=== PATIENT | female | born 1980 | race Caucasian/White ===

== ENCOUNTER 2020-10-11 11:44 | Inpatient (IN) | payer OTHER ==
[2020-10-11 12:22] VITALS: BMI 20.3
[2020-10-11] MEDS ORDERED: Ondansetron PF 4 MG/2 ML Vial IVP PRN (13:10)
[2020-10-11] MEDS ORDERED: Morphine 4 MG/ML VIAL SLOW IVP SCH (13:15)
[2020-10-11] MEDS ORDERED: Ondansetron HCl/PF 6 MG in Sodium Chloride 0.9% 50 ML IVPB PRN (13:15)
[2020-10-11] MEDS ORDERED: Morphine 4 MG/ML VIAL SLOW IVP PRN (13:22)
[2020-10-11] MEDS ORDERED: Hydrocortisone Sod Succ/PF 250 mg/2 ml Vial SLOW IVP SCH (14:45)
[2020-10-11] MEDS ORDERED: Acetaminophen 325 MG TAB PO PRN (14:57)
[2020-10-11] MEDS ORDERED: tiZANidine HCl 4 MG TAB PO PRN (14:57)
[2020-10-11] MEDS: Dextrose 5 %-0.45 % NaCl 1,000 ML IV SCH ×2 (15:38→17:53)
[2020-10-11] MEDS ORDERED: Methylnaltrexone 12 MG/0.6 ML VIAL SC SCH (17:00)
[2020-10-11] MEDS: Prochlorperazine 10 MG/2 ML VIAL IVP PRN (17:27)
[2020-10-11] MEDS ORDERED: Morphine ER 15 MG TAB PO SCH (21:00)
[2020-10-11] MEDS ORDERED: Ivabradine 5 MG TAB PO SCH (21:00)
[2020-10-11] MEDS ORDERED: Tacrolimus 0.5 MG CAP PO SCH (21:00)
[2020-10-11] MEDS ORDERED: MYCOPHENOLATE 180 MG PO SCH (21:00)
[2020-10-11] MEDS ORDERED: HYDROmorphone 2 MG TAB PO SCH (21:00)
[2020-10-11 22:03] VITALS: BP 121/40; TEMP 96.1
[2020-10-12] MEDS ORDERED: Promethazine 25 MG TAB PO PRN (04:03)
[2020-10-12] MEDS ORDERED: Ondansetron ODT 4 MG TAB PO PRN (04:04)
[2020-10-12 05:44] LABS: ALT (SGPT) 16 U/L (8-55); AST (SGOT) 16 U/L (5-34); Albumin 3.7 g/dL (3.5-5.0); Alkaline Phosphatase 51 U/L (40-110); Anion Gap 16 mmol/L (10-20); BUN (Urea Nitrogen) 9 mg/dL (7.0-18.7); Bilirubin, Total 0.7 mg/dL (0.2-1.2); Calc. Creatinine Clearance 60 mL/min (70-130); Calcium 9.2 mg/dL (7.8-10.44); Carbon Dioxide 19 mmol/L (22-29); Chloride 108 mmol/L (98-107); Globulin 1.8 g/dL (2.4-3.5); Glucose 141 mg/dL (70-105); Lipase 8 U/L (8-78); Potassium 4.3 mmol/L (3.5-5.1); Protein, Total 5.5 g/dL (6.0-8.3); Sodium 139 mmol/L (136-145)
[2020-10-12] MEDS: Prochlorperazine 10 MG/2 ML VIAL IVP PRN (05:47)
[2020-10-12 07:15] LABS: Band 4 % (5-11); Hemoglobin 10.2 g/dL (12.0-15.5); Hypersemented Neutrophil SLIGHT; Large Platelets SLIGHT; Lymphocytes 10 % (21-51); MDiff Complete? YES; Mean Corpuscular HGB CONC 33.3 g/dL (32.0-36.0); Mean Platelet Volume 10.2 fl (7.4-10.4); Monocytes 1 % (0-10); Neutrophil 83 % (42-75); Platelet Count 251 10x3/uL (150-450); Platelet Morphology Comment Appears Adequate; RBC Distribution Width 12.9 % (11.5-14.5); RBC Morphology Normal; Reactive Lymphocytes 2 % (0-10); Red Blood Cell (RBC) Count 3.29 10x6/uL (3.90-5.03); White Blood Cell (WBC) Count 6.6 10x3/uL (3.5-10.5)
[2020-10-12] MEDS ORDERED: Tacrolimus 0.5 MG CAP PO SCH (09:00)
[2020-10-12] MEDS ORDERED: Enoxaparin Sodium 40 MG/0.4 ML SYRINGE SC SCH (09:00)
[2020-10-12] MEDS ORDERED: predniSONE 5 MG TAB PO SCH (09:00)
[2020-10-12] MEDS ORDERED: Pantoprazole 40 MG VIAL IVP SCH (09:00)
== END 2020-10-12 07:28 | disposition left against medical advice (07) | DRG 439 ==
LOC: CSHTELE 11:44
PROVIDERS: ADMIT Internal Medicine; ATTEND Internal Medicine
DX: K85.90 Acute pancreatitis without necrosis or infection, unspecified (principal); Z94.0 Kidney transplant status; F11.20 Opioid dependence, uncomplicated; I10 Essential (primary) hypertension; M79.7 Fibromyalgia; K58.9 Irritable bowel syndrome, unspecified; Z79.52 Long term (current) use of systemic steroids; Z79.899 Other long term (current) drug therapy; Z88.5 Allergy status to narcotic agent; Z88.8 Allergy status to other drugs, medicaments and biological substances; M85.80 Other specified disorders of bone density and structure, unspecified site; Z90.710 Acquired absence of both cervix and uterus; Z90.49 Acquired absence of other specified parts of digestive tract; Z90.89 Acquired absence of other organs; Z80.3 Family history of malignant neoplasm of breast; Z82.49 Family history of ischemic heart disease and other diseases of the circulatory system; I49.8 Other specified cardiac arrhythmias; G89.4 Chronic pain syndrome; G25.0 Essential tremor; M47.9 Spondylosis, unspecified
CPT/HCPCS: 36415; 80053; 83690; 85007; 85027; J0780; J1720; J2270; J2405; J7042; Q0162